=== PATIENT | female | born 1955 | race Caucasian/White ===

== ENCOUNTER → 2022-08-26 | Day surgery (SDC) | payer MEDICARE ==
[~2022-08-26] MED LIST: Glycopyrrolate 0.2 MG/ML 5 ML MDV IV ONE; Lactated Ringers 1,000 ML IV SCH; Propofol 200 MG/20 ML SDV IV ONE; Sodium Chloride 0.9% 10 ML Syringe FLUSH PRN
[2022-08-26 09:13] VITALS: BP 105/60; PULSE 62
== END | disposition home or self-care (01) ==
LOC: FB.SDS 08:11
PROVIDERS: ATTEND Surgery
DX: K57.30 Diverticulosis of large intestine without perforation or abscess without bleeding (principal); K63.89 Other specified diseases of intestine; R19.00 Intra-abdominal and pelvic swelling, mass and lump, unspecified site; Z86.010 Personal history of colon polyps; Z80.0 Family history of malignant neoplasm of digestive organs
CPT/HCPCS: 00811-QZ; J2704; J3490; J7120